=== PATIENT | female | born 1945 | race Asian ===

== ENCOUNTER 2017-04-30 08:46 | Day surgery (SDC) | payer MEDICARE ==
[~2017-04-30] VITALS: Ht 152.4 cm; Wt 59.5 kg
[~2017-04-30 08:46] MED LIST: ACAR50TA PO; ASPI-555 PO; GLIM2TAB3 PO; LOSA1TAB37 PO; METF10004 PO; SIMV20TA6 PO
[2017-04-30 10:16] VITALS: BP 82/27
[2017-04-30 10:17] VITALS: BP 127/58
[2017-04-30] MEDS ORDERED: PROPOFOL 10 MG/ML 20ML VIAL IV ONE (10:39)
[2017-04-30] MEDS ORDERED: SODIUM CHLORIDE 0.9% 1000ML 1,000 ML IV ONE (10:42)
[2017-04-30 11:16] VITALS: BP 82/27
== END 2017-04-30 11:45 ==
LOC: DAH 08:46
PROVIDERS: ATTEND Internal Medicine Gastroenterology
DX: Z12.11 Encounter for screening for malignant neoplasm of colon (principal); K57.30 Diverticulosis of large intestine without perforation or abscess without bleeding; K56.2 Volvulus; I10 Essential (primary) hypertension; E78.5 Hyperlipidemia, unspecified; E11.9 Type 2 diabetes mellitus without complications; Z98.890 Other specified postprocedural states; Z83.3 Family history of diabetes mellitus; Z79.84 Long term (current) use of oral hypoglycemic drugs; Z79.899 Other long term (current) drug therapy
CPT/HCPCS: 45378; 82948 ×2; A4606; J2704; J7030

== ENCOUNTER 2018-05-13 13:57 | Emergency (ER) | payer MEDICARE ==
[~2018-05-13 13:57] MED LIST changes: +METF-446 PO; -METF10004 PO
[2018-05-13] MEDS ORDERED: METHYLPREDNISOLONE SOD SUCC 125MG/2ML VIAL ONE (14:46)
[2018-05-13] MEDS ORDERED: ZOSYN 3.375GM+NS 50ML 50 ML IV ONE (14:46)
[2018-05-13] MEDS ORDERED: IPRATROPIUM/ALBUTEROL SULFATE 3 ML SOLUTION IH ONE (15:02)
[2018-05-13 15:04] LABS: BASOPHILS % (AUTO) 0.6 % (0.0-5.0); EOSINOPHILS % (AUTO) 0.8 % (0.0-8.0); HEMATOCRIT 36.6 % (36-48); LYMPHOCYTES % (AUTO) 35.1 % (21.0-51.0); MEAN CORPUSCULAR HEMOGLOBIN 26.9 pg (27.0-33.0); MEAN CORPUSCULAR HGB CONC 33.3 g/dL (32.0-36.0); MEAN CORPUSCULAR VOLUME 80.8 fL (79-99); MONOCYTES % (AUTO) 7.6 % (3.0-13.0); NEUTROPHILS % (AUTO) 55.9 % (40.0-77.0); NUCLEATED RED BLOOD CELLS 0.1 % (0.0-0.19); PLATELET COUNT (AUTO) 249 K/uL (130-400); RED BLOOD CELL COUNT(AUTO) 4.53 MIL/uL (4.00-5.50); RED CELL DISTRIBUTION WIDTH 13.9 % (11.0-15.5); WHITE BLOOD COUNT (AUTO) 4.9 K/uL (4.8-10.8)
[2018-05-13 15:18] LABS: CARBON DIOXIDE 24 mmol/L (21-32); CHLORIDE 94 mmol/L (101-111); CREATININE 1.4 mg/dL (0.5-1.5); GLOMERULAR FILTR. RATE CALC 39 mL/min (>60); GLUCOSE,RANDOM 238 mg/dL (70-105); POTASSIUM 4.1 mmol/L (3.5-5.1); SODIUM SERUM 130 mmol/L (136-145); UREA NITROGEN, BLOOD 14 mg/dL (7-18)
[2018-05-13 15:22] LABS: ALANINE AMINOTRANSFERASE 45 U/L (12-78); ALBUMIN 3.1 g/dL (3.5-5.0); ASPARTATE AMINOTRANSFERASE 56 U/L (10-37); BILIRUBIN,DIRECT < 0.1 mg/dL (0.0-0.3); BILIRUBIN,TOTAL 0.2 mg/dL (0.2-1.0); CREATINE KINASE, TOTAL 245 U/L (21-232); TOTAL PROTEIN, SERUM 7.8 g/dL (6.0-8.3)
== END 2018-05-13 16:58 | disposition home or self-care (01) ==
LOC: EDH 13:57
DX: J20.9 Acute bronchitis, unspecified (principal); I10 Essential (primary) hypertension; E78.5 Hyperlipidemia, unspecified; E11.9 Type 2 diabetes mellitus without complications
CPT/HCPCS: 36415; 71250; 80048; 80076; 82550; 83605 ×2; 84484; 85025; 87040 ×2; 87804 ×2; 93005; 94640; 96365; 96375; 99284; J2543; J2930

== ENCOUNTER 2023-01-10 09:03 | Day surgery (SDC) | payer OTHER, MEDICARE ==
[2023-01-08 14:45] LABS: BASOPHILS # (AUTO) 0.06 K/uL (0.00-0.20); BASOPHILS % (AUTO) 0.4 % (0.0-5.0); EOSINOPHILS # (AUTO) 0.38 K/uL (0.00-0.70); EOSINOPHILS % (AUTO) 2.6 % (0.0-8.0); HEMATOCRIT 41.2 % (36-48); IMMATURE GRANULOCYTE ABSOLUTE 0.06 K/uL (0-1); LYMPHOCYTES # (AUTO) 2.4 K/uL (1.0-4.8); LYMPHOCYTES % (AUTO) 16.3 % (21.0-51.0); MEAN CORPUSCULAR HEMOGLOBIN 26.4 pg (27.0-33.0); MEAN CORPUSCULAR HGB CONC 31.8 g/dL (32.0-36.0); MEAN CORPUSCULAR VOLUME 83.1 fL (79-99); MONOCYTES # (AUTO) 0.6 K/uL (0.1-1.0); NEUTROPHILS # (AUTO) 11.2 K/uL (1.8-7.7); NEUTROPHILS % (AUTO) 76.3 % (40.0-77.0); PLATELET COUNT (AUTO) 278 K/uL (130-400); RED BLOOD CELL COUNT(AUTO) 4.96 MIL/uL (4.00-5.50); RED CELL DISTRIBUTION WIDTH 13.1 % (11.0-15.5); WHITE BLOOD COUNT (AUTO) 14.6 K/uL (4.8-10.8)
[2023-01-08 14:49] VITALS: BP 138/67; PULSE 65; RESP 14
[2023-01-08 14:54] LABS: CREATININE 1.4 mg/dL (0.5-1.5); POTASSIUM 4.7 mmol/L (3.5-5.1)
[2023-01-08 14:56] LABS: INR < 0.93 (0.85-1.15); PROTHROMBIN TIME 10.1 SEC (9.6-11.6)
[2023-01-08 14:58] LABS: PARTIAL THROMBOPLASTIN TIME 29.4 SEC (26.3-35.5)
[2023-01-10] VITALS (12 sets, daily range): BP systolic 114–164; BP diastolic 51–88; PULSE 67–84; RESP 15–16
[~2023-01-10] VITALS: Ht 157.5 cm; Wt 59.5 kg
[~2023-01-10 09:03] MED LIST changes: -ACAR50TA PO; -ASPI-555 PO; +DONE5TAB33 PO; +ERGO500093 PO; -GLIM2TAB3 PO; +INSU100V12 SQ; +LOSA100T59 PO; -LOSA1TAB37 PO; +METO25TA6 PO; +MINO2.5T3 PO; +SIMV-43 PO; -SIMV20TA6 PO
[2023-01-10] MEDS ORDERED: FENTANYL CITRATE PF 50 MCG/1 ML 2ML VIAL ONE (10:09)
[2023-01-10] MEDS ORDERED: MIDAZOLAM HCL 1 MG/ML 2ML VIAL ONE (10:09)
[2023-01-10] MEDS ORDERED: NALOXONE HCL 0.4 MG/1 ML ML ONE (10:09)
[2023-01-10] MEDS ORDERED: LIDOCAINE HCL 2% VISCOUS 15 ML UDCUP ONE (10:09)
[2023-01-10] MEDS ORDERED: FLUMAZENIL 0.1MG/1ML 5ML VIAL IV ONE (10:09)
[2023-01-10] MEDS ORDERED: 0.9%NACL 1000ML 1,000 ML IV ONE (10:10)
== END 2023-01-10 12:35 | disposition home or self-care (01) ==
LOC: DAH 09:03
PROVIDERS: ATTEND Student in an Organized Health Care Education/Training Program
DX: I38 Endocarditis, valve unspecified (principal); I10 Essential (primary) hypertension; E78.5 Hyperlipidemia, unspecified; E11.9 Type 2 diabetes mellitus without complications; Z83.3 Family history of diabetes mellitus; Z82.49 Family history of ischemic heart disease and other diseases of the circulatory system; Z79.4 Long term (current) use of insulin; Z79.84 Long term (current) use of oral hypoglycemic drugs; Z79.899 Other long term (current) drug therapy
CPT/HCPCS: 80048; 85025; 85610; 85730; 36415; 93005; 82948; 93312; J3010; J7030 ×2; J2250; A4215; A4223 ×3; A4657; A7002; A4222; A4663; A4216 ×2; A4606; 99152; J2310; J3490; G0500

== ENCOUNTER 2023-01-13 08:47 | Emergency (ER) | payer OTHER, MEDICARE ==
[~2023-01-13] VITALS: Ht 157.5 cm; Wt 59.4 kg
[2023-01-13] MEDS ORDERED: CEPHALEXIN 500 MG CAPSULE PO ONE (09:30)
[2023-01-13] MEDS ORDERED: METRONIDAZOLE 500 MG TABLET PO SCH (09:30)
[2023-01-13] MEDS ORDERED: CEPH500B PO (09:40)
[2023-01-13] MEDS ORDERED: METR-172 PO (09:40)
[2023-01-13 10:04] VITALS: BP 133/69; PULSE 94; RESP 18; O2SAT 100
== END 2023-01-13 10:05 | disposition home or self-care (01) ==
LOC: EDH 08:47
DX: N76.4 Abscess of vulva (principal); E11.9 Type 2 diabetes mellitus without complications; E78.00 Pure hypercholesterolemia, unspecified; I10 Essential (primary) hypertension; Z79.84 Long term (current) use of oral hypoglycemic drugs